=== PATIENT | female | born 1985 | race Caucasian/White ===

== ENCOUNTER → 2024-10-08 | Outpatient (CLI) | payer OTHER ==
[~2024-10-08] MED LIST: AMOXICILLIN 50500 MG PO; NORCO 325 MG-51 TAB PO; TYLENOL 325MG325 MG PO; WAL-PROFEN200 M1
== END ==
LOC: RAD 14:02
DX: M47.816 Spondylosis without myelopathy or radiculopathy, lumbar region (principal)

== ENCOUNTER 2024-10-17 14:14 | Outpatient (RCR) | payer OTHER | END 2024-10-18 | LOC: PT | DX: M54.50 Low back pain, unspecified (principal); M25.551 Pain in right hip; M25.552 Pain in left hip ==